=== PATIENT | female | born 1960 | race Caucasian/White ===

== ENCOUNTER → 2016-07-10 | Outpatient (CLI) | payer BC, OTHER ==
--- NOTE | 2016-07-10 12:00 | REPMRS ---
Patient History The patient states she has not had a clinical breast exam in over a year. Family history of prostate cancer in father and breast cancer in maternal aunt under age 50. Took estrogen for 1 year. Digital Woman Screen Mammo: July 10, 2016 - Exam #: [id number] Bilateral CC and MLO view(s) were taken. Technologist: Rox Wood, Technologist Prior study comparison: July 03, 2015, digital woman screen mammo performed at [facility]. July 03, 2014, digital woman screen mammo performed at [facility]. FINDINGS: The breast tissue is heterogeneously dense. This may lower the sensitivity of mammography. There has been no change in the appearance of the mammogram from the prior studies. There is a moderate amount of residual fibroglandular tissue which is fairly symmetric. There is no interval development of dominant mass, areas of architectural distortion, or clustered microcalcification typical of malignancy. ASSESSMENT: BI-RADS/ACR category 1 mammogram. Negative. Recommendation Routine screening mammogram in 1 year (for women over age 40). This mammogram was interpreted with the aid of an FDA-approved computer-aided dectection system. Electronically Signed By: Jefe Lagunas MD 07/10/16 1200
== END ==
LOC: M WHC 10:30
PROVIDERS: ATTEND Family Medicine
DX: R92.2 Inconclusive mammogram (principal); Z92.0 Personal history of contraception

== ENCOUNTER → 2016-08-04 | Outpatient (CLI) | payer OTHER ==
[2016-08-04 16:10] LABS: MEAN CORPUSCULAR HEMOGLOBIN 31.7 pg (27.0-33.0); MEAN CORPUSCULAR VOLUME 96.1 fl (80.0-96.0); RED CELL DISTRIBUTION WIDTH 12.5 % (11.5-14.5); WHITE BLOOD COUNT 3.6 K/mm3 (4.0-10.0)
[2016-08-04 16:12] LABS: VITAMIN B12 LEVEL 714 PG/ML (247-911)
[2016-08-04 16:16] LABS: ALBUMIN 3.8 GM/DL (3.2-5.2); ALBUMIN/GLOBULIN RATIO 1.46 (1.00-1.93); ALKALINE PHOSPHATASE 51 U/L (45-117); ALT/SGPT 30 U/L (12-78); ANION GAP 5 MEQ/L (8-16); AST/SGOT 18 U/L (15-37); BILIRUBIN,TOTAL 0.4 MG/DL (0.2-1.0); BLOOD UREA NITROGEN 17 MG/DL (7-18); CALCIUM LEVEL 8.6 MG/DL (8.5-10.1); CARBON DIOXIDE LEVEL 31 MEQ/L (21-32); CHLORIDE LEVEL 106 MEQ/L (98-107); CHOLESTEROL LEVEL 212 MG/DL (<200); CREATININE FOR GFR 0.59 MG/DL (0.55-1.02); GLOMERULAR FILTRATION RATE > 60.0 (>51); GLUCOSE, FASTING 82 MG/DL (70-105); MAGNESIUM LEVEL 2.1 MG/DL (1.8-2.4); PERCENT SATURATION 30.7 % (13.2-37.4); POTASSIUM SERUM 4.1 MEQ/L (3.5-5.1); SODIUM LEVEL 142 MEQ/L (136-145); TOTAL IRON BINDING CAPACITY 313 UG/DL (250-450); TOTAL PROTEIN 6.4 GM/DL (6.4-8.2); TRIGLYCERIDES LEVEL 38 MG/DL (<150)
== END ==
LOC: M WUC 09:23
PROVIDERS: ATTEND Family Medicine
DX: D64.9 Anemia, unspecified (principal); E03.9 Hypothyroidism, unspecified; R53.83 Other fatigue

== ENCOUNTER → 2017-02-03 | Outpatient (CLI) | payer OTHER ==
--- NOTE | 2017-02-03 13:11 | REP ---
Left knee series: Five views. History: Left knee pain. Findings: Five views of the left knee demonstrate normal bones, joints, and soft tissues. There is a normal fabella. A bone island is seen in the distal femur. Impression: No abnormality noted. Signed by Yuri Phillip MD 02/04/2017 07:34 A
== END ==
LOC: M RAD 08:51
PROVIDERS: ATTEND Family Medicine
DX: M25.562 Pain in left knee (principal)

== ENCOUNTER → 2017-07-20 | Outpatient (CLI) | payer OTHER | LOC: M WHC 09:59 | DX: Z12.31 Encounter for screening mammogram for malignant neoplasm of breast (principal) ==

== ENCOUNTER → 2018-07-15 | Outpatient (CLI) | payer OTHER ==
--- NOTE | 2018-07-15 14:20 | REPMRS ---
Patient History The patient states she has not had a clinical breast exam in over a year. Family history of breast cancer under age 50 in maternal aunt, prostate cancer in father. Taking estrogen for 2 years. Digital Woman Screen Mammo: July 15, 2018 - Exam #: [id number] Bilateral CC and MLO view(s) were taken. Technologist: Rox Wood, Technologist Prior study comparison: July 20, 2017, digital woman screen mammo performed at [facility]. July 10, 2016, digital woman screen mammo performed at [facility]. July 03, 2015, digital woman screen mammo performed at [facility]. FINDINGS: The breast tissue is heterogeneously dense. This may lower the sensitivity of mammography. There is a moderate amount of heterogeneously dense fibroglandular tissue which is fairly symmetric. There is no interval development of dominant mass, architectural distortion, or clustered microcalcification typical of malignancy. There has been no change in the appearance of the mammogram from the prior studies. 3-D tomosynthesis shows no additional findings. Assessment: BI-RADS/ACR category 1 mammogram. Negative Mammogram. Recommendation Routine screening mammogram of both breasts in 1 year (for women over age 40). This patient's Lifetime Breast Cancer RIsk is estimated at 10.4 %. This mammogram was interpreted with the aid of an FDA-approved computer-aided dectection system. Electronically Signed By: Montez Phillip MD 07/15/18 [id number]
== END ==
LOC: M WHC 12:59
PROVIDERS: ATTEND Family Medicine
DX: Z12.31 Encounter for screening mammogram for malignant neoplasm of breast (principal)

== ENCOUNTER → 2019-03-21 | Outpatient (CLI) | payer OTHER ==
[2019-03-21 10:12] LABS: HEMATOCRIT 40.3 % (36.0-47.0); HEMOGLOBIN 12.8 g/dl (12.0-15.5); MEAN CORPUSCULAR HEMOGLOBIN 30.9 pg (27.0-33.0); MEAN CORPUSCULAR HGB CONC 31.8 g/dl (32.0-36.5); MEAN CORPUSCULAR VOLUME 97.3 fl (80.0-96.0); PLATELET COUNT, AUTOMATED 210 10^3/uL (150-450); RED BLOOD COUNT 4.14 10^6/uL (4.00-5.40); WHITE BLOOD COUNT 3.9 10^3/uL (4.0-10.0)
[2019-03-21 10:40] LABS: HEMOGLOBIN A1c 5.9 %
[2019-03-21 10:45] LABS: ALBUMIN 3.6 GM/DL (3.2-5.2); ALT/SGPT 18 U/L (12-78); BILIRUBIN,TOTAL 0.4 MG/DL (0.2-1.0); BLOOD UREA NITROGEN 13 MG/DL (7-18); CALCIUM LEVEL 8.8 MG/DL (8.5-10.1); CARBON DIOXIDE LEVEL 28 MEQ/L (21-32); CHLORIDE LEVEL 109 MEQ/L (98-107); CHOLESTEROL LEVEL 198 MG/DL (<200); CHOLESTEROL RISK RATIO 2.275 (<5); GLOMERULAR FILTRATION RATE > 60.0 (>51); GLUCOSE, FASTING 82 MG/DL (70-100); HDL CHOLESTEROL 87 MG/DL (>40); LDL CHOLESTEROL 100 MG/DL (<100); NON-HDL-C 111 MG/DL; POTASSIUM SERUM 4.1 MEQ/L (3.5-5.1); SODIUM LEVEL 142 MEQ/L (136-145); TOTAL PROTEIN 6.5 GM/DL (6.4-8.2); TOTAL T3 94.8 NG/DL (60.0-181.0); TRIGLYCERIDES LEVEL 53 MG/DL (<150)
== END ==
LOC: M LAB 09:30
PROVIDERS: ATTEND Family Medicine
DX: I10 Essential (primary) hypertension (principal)

== ENCOUNTER → 2019-05-02 | Outpatient (CLI) | payer OTHER ==
[2019-05-02 10:31] LABS: C REACTIVE PROTEIN QUANTITATIV < 0.30 MG/DL (0.00-0.30); RHEUMATOID FACTOR QUANT < 10.0 IU/ML (<15.0); URIC ACID 1.4 MG/DL (2.6-6.0)
[2019-05-02 11:40] LABS: CHLAMYDIA DNA AMPLIFICATION NEGATIVE (NEGATIVE); GC DNA AMPLIFICATION NEGATIVE (NEGATIVE)
[2019-05-03 12:14] LABS: HIV 1&2 SCREEN CENTAUR NEGATIVE (NEGATIVE)
[2019-05-04 00:06] LABS: ANTINUCLEAR ANTIBODIES DIRECT Negative (Negative); HSV TYPE II IgG SPECIFIC <0.91 index (0.00-0.90); Lyme Disease IgG/IgM Antibodie <0.91 ISR (0.00-0.90); Lyme Disease IgM Ab Quantitati <0.80 index (0.00-0.79)
== END ==
LOC: M LAB 09:14
PROVIDERS: ATTEND Family Medicine
DX: R53.83 Other fatigue (principal)

== ENCOUNTER → 2019-06-14 | Outpatient (REF) | payer OTHER ==
[2019-06-14 13:51] LABS: BASO # 0.1 10^3/uL (0.0-0.2); BASO % 1.2 % (0.0-1.0); EOS # 0.1 10^3/uL (0.0-0.5); EOS % 2.6 % (0.0-3.0); HEMATOCRIT 39.3 % (36.0-47.0); HEMOGLOBIN 12.8 g/dl (12.0-15.5); LYMPH # 1.3 10^3/uL (1.5-5.0); LYMPH % 31.5 % (24.0-44.0); MEAN CORPUSCULAR HEMOGLOBIN 31.5 pg (27.0-33.0); MEAN CORPUSCULAR HGB CONC 32.6 g/dl (32.0-36.5); MEAN CORPUSCULAR VOLUME 96.8 fl (80.0-96.0); MONO # 0.3 10^3/uL (0.0-0.8); MONO % 7.1 % (0.0-5.0); NEUTROPHILS # 2.4 10^3/uL (1.5-8.5); NEUTROPHILS % 57.4 % (36.0-66.0); PLATELET COUNT, AUTOMATED 243 10^3/uL (150-450); RED BLOOD COUNT 4.06 10^6/uL (4.00-5.40); WHITE BLOOD COUNT 4.3 10^3/uL (4.0-10.0)
[2019-06-14 14:10] LABS: CPK CREATINE PHOSPHOKINASE 108 U/L (26-192); FREE T4 0.99 NG/DL (0.76-1.46); THYROID PEROXIDASE ANTIBODY < 28.0 U/ML (<60.0); TOTAL PROTEIN 7.5 GM/DL (6.4-8.2)
[2019-06-14 14:22] LABS: HEPATITIS B SURFACE ANTIGEN NEGATIVE (NEGATIVE)
[2019-06-14 14:50] LABS: HEPATITIS C VIRUS ABY INDEX 0.1 INDEX (<0.8)
[2019-06-15 14:27] LABS: ALBUMIN 4.77 GM/DL (3.29-5.55); ALBUMIN % 63.6 % (55.8-66.1); ALPHA-1-GLOBULIN % 3.9 % (2.9-4.9); ALPHA-1-GLOBULINS 0.29 GM/DL (0.17-0.41); ALPHA-2-GLOBULINS 0.66 GM/DL (0.42-0.99); ALPHA-2-GLOBULINS % 8.8 % (7.1-11.8); BETA-1-GLOBULINS 0.46 GM/DL (0.28-0.60); BETA-1-GLOBULINS % 6.1 % (4.7-7.2); BETA-2-GLOBULINS 0.32 GM/DL (0.19-0.55); BETA-2-GLOBULINS % 4.3 % (3.2-6.5); GAMMA GLOBULIN % 13.3 % (11.1-18.8)
[2019-06-16 00:06] LABS: ALDOLASE 4.8 U/L (3.3-10.3); ANGIOTENSIN 1 CONVERTING ENZYM 32 U/L (14-82); CYCLIC CITRULLINATED PEPTIDE 7 units (0-19); HEPATITIS B CORE ANTIBODY IGG Negative (Negative)
== END ==
LOC: M SFHCRHEU 10:06
PROVIDERS: ATTEND Internal Medicine
DX: M25.50 Pain in unspecified joint (principal); R63.4 Abnormal weight loss

== ENCOUNTER → 2019-07-10 | Outpatient (CLI) | payer OTHER ==
--- NOTE | 2019-07-10 09:40 | REP ---
Clinical: Polyarthralgia. Neck pain. Technique: AP, lateral, flexion/extension, bilateral oblique, and open mouth views of the cervical spine. Findings: Mild/early moderate multilevel degenerative changes include endplate sclerosis/irregularity with minimal disc space narrowing primarily involving C5-6 and C6-7. Straightening of normal lordosis is nonspecific. No acute fracture / compression injury or subluxation. Posterior elements and spinous processes are intact. Open mouth view demonstrates normal C1-C2 articulation and odontoid process. Oblique views demonstrate patent neural foramen. Impression: Mild/early moderate multilevel degenerative changes primarily involving C5 - C7. Electronically Signed by Madi Lyle MD 07/10/2019 09:31 A
--- NOTE | 2019-07-10 09:41 | REP ---
Clinical: Polyarthralgia. Technique: AP, lateral, bilateral oblique views of the right and left hand. Findings: Osseous structures, joint spaces, and surrounding soft tissues are age-appropriate and within normal limits. No significant inflammatory or osteoarthritic degenerative changes are appreciated. Impression: Symmetric age-appropriate bilateral hand radiographs. Electronically Signed by Madi Lyle MD 07/10/2019 09:33 A
== END ==
LOC: M CLY 08:20
PROVIDERS: ATTEND Internal Medicine
DX: M25.50 Pain in unspecified joint (principal)

== ENCOUNTER → 2019-11-03 | Outpatient (CLI) | payer OTHER ==
--- NOTE | 2019-12-20 14:47 | ECGEPIP ---
[facility] Test Date: 2019-11-03 Pat Name: MARIA ISABEL OATES Department: Room: - Gender: Female Women'S Swim Coach: KANDY : 1960 Requested By: Pao Wills Order Number: [id number] Reading MD: Tomy Berg Measurements Intervals [place] Rate: 61 P: 53 [place]: 154 QRS: -39 QRSD: 90 T: 32 QT: 434 QTc: 441 Interpretive Statements NORMAL SINUS RHYTHM MARKED LEFT AXIS DEVIATION DELAYED ANTERIRO R WAVE PROGRESSION PRIOR TRACING N/A SEE SCANNED DOWNTIME REPORT
--- NOTE | 2019-12-22 07:20 | REP ---
CHEST TWO VIEWS HISTORY: Preop. TECHNIQUE: Two views of the chest were performed. FINDINGS: There was no acute infiltrate. Lungs are clear. Heart and mediastinum are within normal limits. The visualized osseous structures appear intact. IMPRESSION: No active pulmonary disease. MTDD
[2019-12-28 15:52] LABS: HEMATOCRIT 41.5 % (36.0-47.0); HEMOGLOBIN 13.3 g/dl (12.0-15.5); MEAN CORPUSCULAR HEMOGLOBIN 31.6 pg (27.0-33.0); MEAN CORPUSCULAR VOLUME 98.6 fl (80.0-96.0); PLATELET COUNT, AUTOMATED 216 10^3/uL (150-450); RED BLOOD COUNT 4.21 10^6/uL (4.00-5.40); WHITE BLOOD COUNT 3.2 10^3/uL (4.0-10.0)
[2019-12-28 15:53] LABS: INR 0.97
[2019-12-30 11:52] LABS: ALT/SGPT 26 U/L (12-78); BILIRUBIN,TOTAL 0.9 MG/DL (0.2-1.0); BLOOD UREA NITROGEN 14 MG/DL (7-18); CARBON DIOXIDE LEVEL 30 MEQ/L (21-32); CHLORIDE LEVEL 106 MEQ/L (98-107); CHOLESTEROL LEVEL 219 MG/DL (<200); CHOLESTEROL RISK RATIO 2.737 (<5); CREATININE FOR GFR 0.63 MG/DL (0.55-1.30); GLOMERULAR FILTRATION RATE > 60.0 (>51); GLUCOSE, FASTING 76 MG/DL (70-100); HDL CHOLESTEROL 80 MG/DL (>40); LDL CHOLESTEROL 127 MG/DL (<100); NON-HDL-C 139 MG/DL; POTASSIUM SERUM 3.9 MEQ/L (3.5-5.1); SODIUM LEVEL 140 MEQ/L (136-145); TOTAL PROTEIN 7.1 GM/DL (6.4-8.2); TRIGLYCERIDES LEVEL 61 MG/DL (<150)
== END ==
LOC: M LAB 08:48
PROVIDERS: ATTEND Family Medicine
DX: E03.9 Hypothyroidism, unspecified (principal); Z01.818 Encounter for other preprocedural examination

== ENCOUNTER → 2020-08-01 | Outpatient (CLI) | payer OTHER ==
--- NOTE | 2020-08-01 10:17 | REP ---
INDICATION: FATIGUE,HYPO,COPD / LABS 1ST COMPARISON: 11/03/2019 TECHNIQUE: PA and lateral. FINDINGS: The mediastinum and cardiac silhouette are normal. The lung gonsalez are clear and without acute consolidation, effusion, or pneumothorax. The skeletal structures are intact and normal. IMPRESSION: No acute cardiopulmonary process. <Electronically signed by Madi Lyle > 08/01/20 1013
[2020-08-01 10:28] LABS: HEMATOCRIT 44.2 % (36.0-47.0); HEMOGLOBIN 14.3 g/dl (12.0-15.5); MEAN CORPUSCULAR HEMOGLOBIN 31.8 pg (27.0-33.0); MEAN CORPUSCULAR HGB CONC 32.4 g/dl (32.0-36.5); MEAN CORPUSCULAR VOLUME 98.4 fl (80.0-96.0); PLATELET COUNT, AUTOMATED 275 10^3/uL (150-450); RED BLOOD COUNT 4.49 10^6/uL (4.00-5.40); WHITE BLOOD COUNT 4.4 10^3/uL (4.0-10.0)
[2020-08-01 11:06] LABS: ALT/SGPT 20 U/L (12-78); BILIRUBIN,TOTAL 0.5 MG/DL (0.2-1.0); BLOOD UREA NITROGEN 15 MG/DL (7-18); CALCIUM LEVEL 9.7 MG/DL (8.5-10.1); CARBON DIOXIDE LEVEL 31 MEQ/L (21-32); CHLORIDE LEVEL 105 MEQ/L (98-107); CHOLESTEROL LEVEL 258 MG/DL (<200); CREATININE FOR GFR 0.54 MG/DL (0.55-1.30); GLOMERULAR FILTRATION RATE > 60.0 (>51); GLUCOSE, FASTING 81 MG/DL (70-100); HDL CHOLESTEROL 112 MG/DL (>40); SODIUM LEVEL 140 MEQ/L (136-145); TRIGLYCERIDES LEVEL 73 MG/DL (<150)
[2020-08-01 11:07] LABS: ALBUMIN 3.9 GM/DL (3.2-5.2); CHOLESTEROL RISK RATIO 2.303 (<5); LDL CHOLESTEROL 131 MG/DL (<100); NON-HDL-C 146 MG/DL; TOTAL 25(OH) VITAMIN D 70.2 NG/ML (30.0-100.0); TOTAL PROTEIN 7.1 GM/DL (6.4-8.2)
== END ==
LOC: M LAB 09:05
PROVIDERS: ATTEND Family Medicine
DX: R53.83 Other fatigue (principal); E03.9 Hypothyroidism, unspecified; J44.9 Chronic obstructive pulmonary disease, unspecified

== ENCOUNTER → 2021-02-13 | Outpatient (CLI) | payer OTHER ==
--- NOTE | 2021-02-13 13:55 | REP ---
INDICATION: CHEST PAIN. COMPARISON: Multiple latest 08/01/2020 TECHNIQUE: PA and lateral FINDINGS: The superior mediastinal structures are midline. The cardiac silhouette is unremarkable in size, shape, and position. The diaphragmatic surfaces of the lungs are regular, and the costophrenic angles are clear. The pulmonary gonsalez are clear. The imaged osseous structures are intact. IMPRESSION: There is no acute cardiopulmonary disease. <Electronically signed by Horace Romo > 02/13/21 [id number]
== END ==
LOC: M RAD 13:04
PROVIDERS: ATTEND Family Medicine
DX: R07.9 Chest pain, unspecified (principal)

== ENCOUNTER 2021-03-18 12:24 | Emergency (ER) | payer OTHER ==
[~2021-03-18] VITALS: Ht 160 cm; Wt 63.6 kg
[2021-03-18 12:26] VITALS: BP 114/72
[2021-03-18] MEDS ORDERED: LEVO100T5 PO (12:38)
[2021-03-18] MEDS ORDERED: ERGO500029 PO (12:38)
[2021-03-18 15:14] LABS: BASO % 0.8 % (0.0-1.0); EOS # 0.1 10^3/uL (0.0-0.5); EOS % 2.2 % (0.0-3.0); HEMATOCRIT 42.8 % (36.0-47.0); HEMOGLOBIN 13.8 g/dl (12.0-15.5); LYMPH # 1.8 10^3/uL (1.5-5.0); LYMPH % 35.4 % (24.0-44.0); MEAN CORPUSCULAR HEMOGLOBIN 30.4 pg (27.0-33.0); MEAN CORPUSCULAR HGB CONC 32.2 g/dl (32.0-36.5); MEAN CORPUSCULAR VOLUME 94.3 fl (80.0-96.0); MONO # 0.4 10^3/uL (0.0-0.8); NEUTROPHILS # 2.7 10^3/uL (1.5-8.5); NEUTROPHILS % 54.6 % (36.0-66.0); PLATELET COUNT, AUTOMATED 247 10^3/uL (150-450); RED BLOOD COUNT 4.54 10^6/uL (4.00-5.40)
[2021-03-18 15:49] LABS: ALBUMIN 4.2 GM/DL (3.2-5.2); ALT/SGPT 24 U/L (12-78); BILIRUBIN,DIRECT 0.1 MG/DL (0.0-0.2); BILIRUBIN,TOTAL 0.7 MG/DL (0.2-1.0); BLOOD UREA NITROGEN 12 MG/DL (7-18); CALCIUM LEVEL 9.5 MG/DL (8.5-10.1); CARBON DIOXIDE LEVEL 29 MEQ/L (21-32); CHLORIDE LEVEL 104 MEQ/L (98-107); GLOMERULAR FILTRATION RATE > 60.0 (>51); GLUCOSE, FASTING 90 MG/DL (70-100); NT-PRO BNP 99 PG/ML (<125); POTASSIUM SERUM 4.2 MEQ/L (3.5-5.1); SODIUM LEVEL 139 MEQ/L (136-145); THYROID STIMULATING HORMONE 0.691 uIU/ML (0.358-3.740); TOTAL PROTEIN 7.6 GM/DL (6.4-8.2)
[2021-03-18] MEDS ORDERED: ISOVUE-370 76% 100ML VIAL As Ordered ONE (16:27)
--- NOTE | 2021-03-18 16:48 | REP ---
INDICATION: sob COMPARISON: None. TECHNIQUE: Axial contrast enhanced images from the thoracic inlet to the upper abdomen using pulmonary embolus technique with multiplanar re-formations. 75 ml Isovue 370 intravenous contrast material administered without complication. This CT examination was performed using the following dose reduction techniques: Automated exposure control, adjustment of mA and/or kv according to the patient's size, and use of iterative reconstruction technique. FINDINGS: Satisfactory enhancement of the pulmonary vasculature is achieved and no filling defects are identified to suggest pulmonary embolus. Further evaluation of the mediastinum demonstrates normal thoracic aorta, heart and pericardium. The bilateral lung gonsalez are well aerated and clear without consolidation pleural effusion or pneumothorax. Tracheobronchial tree is patent. No nodule or mass lesion is identified. No adenopathy noted. Surrounding musculoskeletal structures intact bilateral breast implants appear normal. IMPRESSION: No evidence for pulmonary embolus. No acute mediastinal or pleural parenchymal process. <Electronically signed by Madi Lyle > 03/18/21 [id number]
--- NOTE | 2021-03-18 19:32 | ECGEPIP ---
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
== END 2021-03-18 17:48 | disposition home or self-care (01) ==
LOC: M ED 12:24
DX: R06.02 Shortness of breath (principal); R00.2 Palpitations; R94.31 Abnormal electrocardiogram [ECG] [EKG]; E03.9 Hypothyroidism, unspecified
CPT/HCPCS: 36415; 71275; 80048; 80076; 83605; 83880; 84443; 84484; 85025; 87798; 93005; 99284; Q9967

== ENCOUNTER → 2021-03-18 | Outpatient (CLI) | payer OTHER ==
[~2021-03-18] MED LIST: ERGO500029 PO; LEVO100T5 PO
--- NOTE | 2021-03-18 12:07 | REP ---
INDICATION: R/O PNEUMONIA COMPARISON: 02/13/2021 TECHNIQUE: PA and lateral. FINDINGS: The mediastinum and cardiac silhouette are normal. The lung gonsalez are clear and without acute consolidation, effusion, or pneumothorax. The skeletal structures are intact and normal. IMPRESSION: No acute cardiopulmonary process. <Electronically signed by Madi Lyle > 03/18/21 [id number]
== END ==
LOC: M RAD 11:51
PROVIDERS: ATTEND Family Medicine
DX: J44.9 Chronic obstructive pulmonary disease, unspecified (principal)

== ENCOUNTER 2021-11-18 17:09 | Emergency (ER) | payer BC, OTHER ==
[~2021-11-18] VITALS: Ht 160 cm; Wt 63.6 kg
[2021-11-18] MEDS ORDERED: dexameTHASONE 20MG/5ML VIAL (J1100 PER 1MG) IV ONE (17:20)
[2021-11-18] MEDS ORDERED: EPIP0.3I2 IM ×2 (17:26→18:35)
[2021-11-18 18:55] VITALS: BP 134/82
== END 2021-11-18 19:20 | disposition home or self-care (01) ==
LOC: M ED 18:43
DX: R22.0 Localized swelling, mass and lump, head (principal); Z91.030 Bee allergy status; E07.9 Disorder of thyroid, unspecified; Z79.890 Hormone replacement therapy
CPT/HCPCS: 96374; 99284; J1100

== ENCOUNTER → 2021-12-01 | Outpatient (CLI) | payer BC, OTHER ==
[~2021-12-01] MED LIST changes: +EPIP0.3I2 IM
[2021-12-01 10:16] LABS: HEMATOCRIT 38.7 % (36.0-47.0); HEMOGLOBIN 12.9 g/dl (12.0-15.5); MEAN CORPUSCULAR HEMOGLOBIN 31.5 pg (27.0-33.0); MEAN CORPUSCULAR HGB CONC 33.3 g/dl (32.0-36.5); MEAN CORPUSCULAR VOLUME 94.4 fl (80.0-96.0); PLATELET COUNT, AUTOMATED 205 10^3/uL (150-450); WHITE BLOOD COUNT 3.9 10^3/uL (4.0-10.0)
[2021-12-01 10:44] LABS: HEMOGLOBIN A1c 5.9 %
[2021-12-01 10:55] LABS: ALBUMIN 3.6 GM/DL (3.2-5.2); ALT/SGPT 15 U/L (12-78); BILIRUBIN,TOTAL 0.5 MG/DL (0.2-1.0); BLOOD UREA NITROGEN 10 MG/DL (7-18); CALCIUM LEVEL 9.1 MG/DL (8.5-10.1); CARBON DIOXIDE LEVEL 30 MEQ/L (21-32); CHLORIDE LEVEL 107 MEQ/L (98-107); CHOLESTEROL LEVEL 220 MG/DL (<200); CHOLESTEROL RISK RATIO 2.558 (<5); CREATININE FOR GFR 0.62 MG/DL (0.55-1.30); GLOMERULAR FILTRATION RATE > 60.0 (>51); GLUCOSE, FASTING 78 MG/DL (70-100); HDL CHOLESTEROL 86 MG/DL (>40); LDL CHOLESTEROL 122 MG/DL (<100); NON-HDL-C 134 MG/DL; POTASSIUM SERUM 4.1 MEQ/L (3.5-5.1); SODIUM LEVEL 138 MEQ/L (136-145); TOTAL PROTEIN 6.4 GM/DL (6.4-8.2); TRIGLYCERIDES LEVEL 58 MG/DL (<150)
[2021-12-02 10:44] LABS: TOTAL 25(OH) VITAMIN D 51.5 NG/ML (30.0-100.0)
== END ==
LOC: M RAD 09:00
PROVIDERS: ATTEND Family Medicine
DX: I10 Essential (primary) hypertension (principal); R53.83 Other fatigue; E03.9 Hypothyroidism, unspecified

== ENCOUNTER → 2022-06-27 | Outpatient (CLI) | payer BC, OTHER | LOC: M RAD 08:47 | PROVIDERS: ATTEND Physician Assistant | DX: M79.631 Pain in right forearm (principal) ==

== ENCOUNTER → 2023-05-10 | Outpatient (CLI) | payer BC, OTHER | LOC: M RAD 09:37 | PROVIDERS: ATTEND Family Medicine | DX: R19.06 Epigastric swelling, mass or lump (principal); R19.04 Left lower quadrant abdominal swelling, mass and lump ==

== ENCOUNTER → 2023-07-06 | Outpatient (CLI) | payer BC ==
[~2023-07-06] MED LIST changes: +E-Z-GAS II EFFERVESCENT PACKET (SODIUM BICARB./CITRIC ACID/SIMETHICONE) As Ordered ONE; +E-Z-HD 98% w/w 340GM SUSP BTL As Ordered ONE; +E-Z-PAQUE 96% w/w SUSP 176GM BTL As Ordered ONE
== END ==
LOC: M RAD 08:03
PROVIDERS: ATTEND Family Medicine
DX: R10.13 Epigastric pain (principal)